=== PATIENT | female | born 1945 | race Caucasian/White ===

== ENCOUNTER 2018-05-11 10:28 | Day surgery (SDC) | payer MEDICARE, SELFPAY ==
[2018-05-11] MEDS: PROPARACAINE 0.5% OPHTH SOL 2 DROPS EYE-OP (11:50)
[2018-05-11 11:54] VITALS: BP 160/71; PULSE 64; RESP 16; TEMP 36.6; O2SAT 99; BMI 18.8
[2018-05-11] MEDS: CATARACT EYE COMPOUND (10 DROPS/SYRINGE) 3 DROPS EYE-OP (11:55)
--- NOTE | 2018-05-11 12:25 | P.OP.PRE_ITS ---
Pre-operative Note Interval Note Changes: No
--- NOTE | 2018-05-11 12:25 | PM.PREOP ---
Pre-operative Note Interval Note Changes: No
--- NOTE | 2018-05-11 12:25 | PM.OP.1 ---
Operative Date/Time/Diagnoses Pre-op diagnosis: Cataract Left eye Post-op diagnosis: same Procedure & Clinicians Surgeon: Chun Shell Anesthesia Type: MAC +/- and Sedation Operative Notes Procedure in detail: Patient brought to the operating suite. Tetracaine drops placed in the left eye. Marking instrument was used to rogelio the verticle and horizontal meridians. Patient was prepped and draped in sterile manner. Wire lid speculum was placed in the eye. Betadine drops were placed on the eye. This was irrigated. Lidocaine jelly was placed on the eye. A paracentesis port was created with a side-port blade. 0.1 mL 1% preservative free lidocaine was injected into the anterior chamber. The anterior chamber was deepened with viscoelastic. 2.6 mm keratome was used to create a temporal clear corneal incision. Cystotome and Utrata forceps were used to create continuous tear capsulorrhexis. Balanced salt solution was used to hydro dissect the nucleus. The phacoemulsification handpiece was inserted and the nucleus was removed using the stop and chop technique. The irrigation aspiration handpiece was inserted and the remaining cortex was removed. Anterior chamber was deepened with viscoelastic. An Kerr [id number] intraocular lens with a power of 30.0 was injected into the capsular bag. Irrigation aspiration handpiece was inserted and the remaining viscoelastic was removed. The lens was rotated to the 180 degree meridian. Incision was hydrated with balanced salt solution and found to be leak free with pressure with Weck-Erika sponges. 0.1 mL Vigamox injected anterior chamber. 0.3 mL Kenalog 10 mg was injected subconjunctivally. Lid speculum was removed. The patient left the operating room in excellent condition. Complications: none Condition: stable Disposition: same day surgery
[2018-05-11] MEDS: LIDOCAINE JELLY 2% 5 ML 1 APPLIC TOP (12:35)
[2018-05-11] MEDS: CHONDROIDTIN/SOD HYALURONATE 1.05 ML SYRINGE INTRAOCULA (12:35)
[2018-05-11] MEDS: MOXIFLOXACIN OPHTH DROPS 3 ML BOTTLE 2 DROPS INJ (12:36)
[2018-05-11] MEDS: TETRACAINE 0.5% OPHTH DROPS 15 ML 2 DROPS EYE-LEFT (12:36)
[2018-05-11] MEDS: BALANCED SALT IRRIG SOLN NO.2 500 ML, EPINEPHrine 1 MG IRR (12:36)
[2018-05-11] MEDS: TRIAMCINOLONE 50 MG/5 ML VIAL INJ (12:36)
[2018-05-11] MEDS: PHENYLEPHRINE/LIDOCAINE VIAL (OR) 0.2 ML EYE-OP (12:36)
[2018-05-11 13:08] VITALS: BP 155/76; PULSE 98; RESP 16; TEMP 37.1; O2SAT 98
--- NOTE | 2018-05-11 13:10 | SUR.PHASEII ---
pt states she is in afib pulse rate between 88-105 , dr cruz notified, no orders given , pt has history of afib , no questions asked
--- NOTE | 2018-05-11 13:18 | SUR.PHASEII ---
pt steady on feet, dressed ready to go at 1315
== END 2018-05-11 13:17 ==
PROVIDERS: PCP Family Medicine; Visit Provider Ophthalmology
DX: H25.12 Age-related nuclear cataract, left eye (principal); I10 Essential (primary) hypertension; G43.909 Migraine, unspecified, not intractable, without status migrainosus; I48.91 Unspecified atrial fibrillation
CPT/HCPCS: J0171; J3301; V2787

== ENCOUNTER 2018-05-25 09:18 | Day surgery (SDC) | payer MEDICARE, SELFPAY ==
[2018-05-25 10:39] VITALS: BP 163/68; PULSE 65; RESP 15; TEMP 36.3; O2SAT 98; BMI 18.8
[2018-05-25] MEDS: PROPARACAINE 0.5% OPHTH SOL 2 DROPS EYE-OP (10:50)
[2018-05-25] MEDS: CATARACT EYE COMPOUND (10 DROPS/SYRINGE) 3 DROPS EYE-OP (10:55)
--- NOTE | 2018-05-25 11:22 | P.OP.PRE_ITS ---
Pre-operative Note Interval Note Changes: No
--- NOTE | 2018-05-25 11:22 | PM.PREOP ---
Pre-operative Note Interval Note Changes: No
--- NOTE | 2018-05-25 11:22 | PM.OP.1 ---
Operative Date/Time/Diagnoses Pre-op diagnosis: Cataract Right eye Post-op diagnosis: same Procedure & Clinicians Procedure: Cataract Surgery Same procedure as scheduled: Yes Surgeon: Chun Shell Anesthesia Type: MAC +/- and Sedation Operative Notes Procedure in detail: Patient brought to the operating suite. Tetracaine drops placed in the right eye. The marking instrument was used to rogelio the verticle and horizontal meridians. Patient was prepped and draped in sterile manner. Wire lid speculum was placed in the eye. Betadine drops were placed on the eye. This was irrigated. Lidocaine jelly was placed on the eye. A paracentesis port was created with a side-port blade. 0.1 mL 1% preservative free lidocaine was injected into the anterior chamber. The anterior chamber was deepened with viscoelastic. 2.6 mm keratome was used to create a temporal clear corneal incision. Cystotome and Utrata forceps were used to create continuous tear capsulorrhexis. Balanced salt solution was used to hydro dissect the nucleus. The phacoemulsification handpiece was inserted and the nucleus was removed using the stop and chop technique. The irrigation aspiration handpiece was inserted and the remaining cortex was removed. Anterior chamber was deepened with viscoelastic. An Kerr [id number] intraocular lens with a power of 27.5 was injected into the capsular bag. Irrigation aspiration handpiece was inserted and the remaining viscoelastic was removed. The lens was rotated to the 180 degree meridian. Incision was hydrated with balanced salt solution and found to be leak free with pressure with Weck-Erika sponges. 0.1 mL Vigamox injected anterior chamber. 0.3 mL Kenalog 10 mg was injected subconjunctivally. Lid speculum was removed. The patient left the operating room in excellent condition. Complications: none Condition: stable Disposition: same day surgery
[2018-05-25] MEDS: PHENYLEPHRINE/LIDOCAINE VIAL (OR) 0.2 ML EYE-OP (11:32)
[2018-05-25] MEDS: MOXIFLOXACIN OPHTH DROPS 3 ML BOTTLE 2 DROPS INJ (11:32)
[2018-05-25] MEDS: CHONDROIDTIN/SOD HYALURONATE 1.05 ML SYRINGE INTRAOCULA (11:32)
[2018-05-25] MEDS: LIDOCAINE JELLY 2% 5 ML 1 APPLIC TOP (11:32)
[2018-05-25] MEDS: TRIAMCINOLONE 50 MG/5 ML VIAL INJ (11:33)
[2018-05-25] MEDS: BALANCED SALT IRRIG SOLN NO.2 500 ML, EPINEPHrine 1 MG IRR (11:33)
[2018-05-25] MEDS: TETRACAINE 0.5% OPHTH DROPS 15 ML 2 DROPS EYE-RIGHT (11:33)
[2018-05-25 11:49] VITALS: BP 124/62; PULSE 60; RESP 15; TEMP 36.4; O2SAT 96
[2018-05-25 12:06] VITALS: BP 132/66; PULSE 62; RESP 15; TEMP 36.8; O2SAT 97
== END 2018-05-25 12:11 | disposition home or self-care (01) ==
PROVIDERS: PCP Family Medicine; Visit Provider Ophthalmology
DX: H25.11 Age-related nuclear cataract, right eye (principal); I10 Essential (primary) hypertension; I48.91 Unspecified atrial fibrillation
CPT/HCPCS: J0171; J2250; J3010; J3301